=== PATIENT | female | born 1965 | race Caucasian/White ===

== ENCOUNTER 2017-12-25 07:04 | Inpatient (IN) | payer BC ==
[~2017-12-25 07:04] MED LIST: Acetaminophen 1,000 MG in Premix Bag 1 BAG IV ONE; Famotidine 20 MG/2 ML SDV IVPUSH ONE; Ketorolac 30 MG/ML SDV IVPUSH ONE; Lidocaine 2% 5 ML SDV ONE; Midazolam 1 MG/ML 2 ML SDV ONE; Propofol 200 MG/20 ML SDV ONE; Scopolamine 1.5 MG Transdermal Patch TOP ONE; ceFAZolin 2 GM in Premix Bag 1 BAG IV ONE; fentaNYL 100 MCG/2 ML SDV ONE; oxyCODONE ER 10 MG TAB.ER PO ONE
[2017-12-25] MEDS ORDERED: ceFAZolin 1 GM Vial ONE (07:08)
[2017-12-25] MEDS ORDERED: Sodium Chloride 0.9% 20 ML ONE (07:08)
[2017-12-25] MEDS: Lactated Ringers 1,000 ML IV SCH ×3 (07:18→21:24)
--- NOTE | 2017-12-25 07:40 | PCM.PREANE ---
Preanesthetic Assessment - Anesthesia/Transfusion/Family Hx Anesthesia History: Prior Anesthesia Without Reaction Family History of Anesthesia Reaction: No Transfusion History: No Prior Transfusion(s) Intubation History: Unknown - Review of Systems General: No Symptoms Pulmonary: No Symptoms Cardiovascular: No Symptoms Gastrointestinal: No Symptoms Neurological: No Symptoms Other: Reports: None - Physical Assessment O2 Sat by Pulse Oximetry: 97 Respiratory Rate: 16 Vital Signs: Last Vital Signs Temp 36.5 C 12/25/17 07:10 Pulse 73 12/25/17 07:10 Resp 16 12/25/17 07:10 BP 119/73 12/25/17 07:10 Pulse Ox 97 12/25/17 07:10 Height: 1.75 m Weight: 91.626 kg ASA Class: 2 Mental Status: Alert & Oriented x3 Airway Class: Mallampati = 2 Dentition: Reports: Normal Dentition, Fordoche(s) (x1 right lower) Thyro-Mental Finger Breadths: 3 Mouth Opening Finger Breadths: 3 ROM/Head Extension: Full Lungs: Clear to Auscultation, Normal Respiratory Effort Cardiovascular: Regular Rate, Regular Rhythm - Allergies Allergies/Adverse Reactions: Allergies Allergy/AdvReac Type Severity Reaction Status Date / Time No Known Allergies Allergy Verified 12/25/17 07:27 - Blood Blood Available: No - Anesthesia Plan Pre-Op Medication Ordered: None - Acknowledgements Anesthesia Type Planned: Spinal Pt an Appropriate Candidate for the Planned Anesthesia: Yes Alternatives and Risks of Anesthesia Discussed w Pt/Guardian: Yes Pt/Guardian Understands and Agrees with Anesthesia Plan: Yes PreAnesthesia Questionnaire HEENT History: Reports: Other (See Below) Other HEENT History: wears glasses Gastrointestinal History: Reports: None Genitourinary History: Reports: None Musculoskeletal History: Reports: Arthritis, Fracture Other Musculoskeletal History: hx fx foot - Past Surgical History Head Surgeries/Procedures: Reports: None GI Surgical History: Reports: Cholecystectomy Female Surgical History: Reports: Other (See Below) Other Female Surgeries/Procedures: ureteral reimplantation Musculoskeletal Surgical History: Reports: Arthroscopic Knee, Other (See Below) Other Musculoskeletal Surgeries/Procedures:: left knee scope x2, left leg ligament reconstruction Dermatological Surgical History: Reports: Other (See Below) (exc. of hand cyst) - SUBSTANCE USE Smoking Status *Q: Never Smoker Recreational Drug Use History: No - HOME MEDS Home Medications: Home Meds Multivitamin [Multivitamins] 1 tab PO DAILY 06/04/14 [History] Fish Oil/DHA/EPA [Fish Oil 1,200 MG] 1,200 mg PO DAILY 12/20/17 [History] Ibuprofen 3 tab PO BEDTIME PRN 12/20/17 [History] Tranexamic Acid [Lysteda] 650 mg PO DAILY PRN 12/20/17 [History] - CURRENT (IN HOUSE) MEDS Current Meds: Current Medications Lactated Ringer's (Ringers, Lactated) 1,000 mls @ 125 mls/hr IV ASDIRECTED [facility] Last Admin: 12/25/17 07:18 Dose: 125 mls/hr Discontinued Medications Cefazolin Sodium (Ancef) Confirm Administered Dose 2 gm .ROUTE .STK-MED ONE Stop: 12/25/17 07:09 Famotidine (Pepcid) 40 mg IVPUSH ONETIME ONE Stop: 12/25/17 06:35 Last Admin: 12/25/17 07:20 Dose: 40 mg Fentanyl (Sublimaze) Confirm Administered Dose 100 mcg .ROUTE .STK-MED ONE Stop: 12/25/17 07:00 Acetaminophen 1,000 mg/ Premix 100 mls @ 400 mls/hr IV NOW ONE Stop: 12/25/17 06:47 Last Admin: 12/25/17 07:26 Dose: 400 mls/hr Cefazolin Sodium/Dextrose 2 gm (/ Premix) 50 mls @ 100 mls/hr IV ONETIME ONE Stop: 12/25/17 07:06 Sodium Chloride (Normal Saline) Confirm Administered Dose 20 mls @ as directed .ROUTE .STK-MED ONE Stop: 12/25/17 07:09 Ketorolac Tromethamine (Toradol) 30 mg IVPUSH ONETIME ONE Stop: 12/25/17 06:33 Last Admin: 12/25/17 07:25 Dose: 30 mg Lidocaine (Xylocaine-Mpf 2%) Confirm Administered Dose 5 ml .ROUTE .STK-MED ONE Stop: 12/25/17 07:00 Midazolam HCl (Versed 1 Mg/Ml) Confirm Administered Dose 2 mg .ROUTE .STK-MED ONE Stop: 12/25/17 07:00 Oxycodone HCl (Oxycontin) 10 mg PO ONETIME ONE Stop: 12/25/17 06:32 Last Admin: 12/25/17 07:19 Dose: 10 mg Propofol (Diprivan 20 Ml) Confirm Administered Dose 400 mg .ROUTE .STK-MED ONE Stop: 12/25/17 07:00 Scopolamine (Transderm-Scop) 1.5 mg TOP ONETIME ONE Stop: 12/25/17 06:38 Last Admin: 12/25/17 07:20 Dose: 1.5 mg Tranexamic Acid (Cyklokapron) Confirm Administered Dose 4,000 mg .ROUTE .STK- MED ONE Stop: 12/25/17 07:35
[2017-12-25] MEDS ORDERED: Bupivacaine Liposome 1.3% 20 ML SDV INFILT SCH (08:00)
[2017-12-25] MEDS ORDERED: Tranexamic Acid 4,000 MG in Sodium Chloride 0.9% 100 ML IV SCH (08:00)
[2017-12-25] MEDS ORDERED: Ropivacaine 49.25 ML, Ketorolac 30 MG, EPINEPHrine 0.5 MG, cloNIDine 80 MCG in Sodium C... INJECT SCH (08:00)
[2017-12-25] MEDS ORDERED: ePHEDrine 50 MG/ML SDV ONE (08:30)
[2017-12-25] MEDS ORDERED: Propofol 200 MG/20 ML SDV ONE (08:44)
[2017-12-25] MEDS ORDERED: fentaNYL 100 MCG/2 ML SDV IVPUSH PRN (08:46)
--- NOTE | 2017-12-25 10:03 | PCM.OPNOTE ---
- General Post-Op/Procedure Note Date of Surgery/Procedure: 12/25/17 Operative Procedure(s): L TKA. HWR L femur Post-Op Diagnosis: DJD L knee. retained HW left femur Anesthesia Technique: Moderate Sedation, Spinal Primary Surgeon: Kaylyn Martinez Information Technology Project Manager: Kayla Yang in mLs: 50 Condition: Good Free Text/Narrative:: tt=48 min #[id number]
[2017-12-25] MEDS ORDERED: Ondansetron 4 MG/2 ML SDV IV PRN (10:07)
[2017-12-25] MEDS ORDERED: diphenhydrAMINE 25 MG Cap PO PRN (10:07)
[2017-12-25] MEDS ORDERED: Bisacodyl 10 MG Supp RECTAL PRN (10:07)
[2017-12-25] MEDS ORDERED: Aluminum Hydroxide/Magnesium Hydroxide/Simethicone Susp 30 ML Cup PO PRN (10:07)
[2017-12-25] MEDS ORDERED: Morphine PF 30 MG/30 ML PCA Vial IV SCH (10:15)
--- NOTE | 2017-12-25 10:27 | PCM.POSTAN ---
POST ANESTHESIA ASSESSMENT - MENTAL STATUS Mental Status: Alert, Oriented - RESPIRATORY Respiratory Status: Respiratory Rate WNL, Airway Patent, O2 Saturation Stable - CARDIOVASCULAR CV Status: Pulse Rate WNL - GASTROINTESTINAL GI Status: No Symptoms - PAIN Pain Score: 0 - POST OP HYDRATION Hydration Status: Adequate & Stable - OBSERVATIONS Free Text/Narrative:: no anesthesia problems
--- NOTE | 2017-12-25 12:09 | OR ---
SURGEON: Kaylyn Martinez MD DATE OF PROCEDURE: 12/25/2017 PREOPERATIVE DIAGNOSES: 1. Degenerative joint disease, left knee, tricompartmental. 2. Retained hardware, left femur, status post left anterior cruciate ligament reconstruction. POSTOPERATIVE DIAGNOSES: 1. Degenerative joint disease, left knee, tricompartmental. 2. Retained hardware, left femur, status post left anterior cruciate ligament reconstruction. PROCEDURES: 1. Left total knee arthroplasty 2. Hardware removal, left femur, deep implant. WATER MAINTENANCE SUPERVISOR: Kayla Yang PA-C ANESTHESIA: Spinal with sedation. ESTIMATED BLOOD LOSS: 15 mL. TOURNIQUET TIME: 48 minutes. COMPLICATIONS: None. DVT PROPHYLAXIS: PAS boot and SANDIP hose to the nonoperative leg. IMPLANTS USED: Gila Persona femoral component size 9 standard (LPS), tibial component size G, 11 mm all-polyethylene articular surface, and 35 mm all-polyethylene patella. INTRAOPERATIVE FINDINGS: Showed severe tricompartmental degenerative changes which were most severe along the lateral patellofemoral compartment. Osteophyte formation was also noted. The ACL graft appeared intact. Loose body was noted within the posterior aspect of the knee. We did encounter the endo-button along the lateral aspect of the femur, which was removed without difficulty. DESCRIPTION OF PROCEDURE: The patient was properly identified and brought to the operating room. The patient was then transferred from the operating room cart and placed on the operating table in a supine position. Anesthesia was administered by the anesthesia staff. After adequate anesthesia was obtained, a well-padded tourniquet was applied to the surgical lower extremity. Rueda catheter was placed. The lower extremity was then prepped in standard fashion using ChloraPrep solution. It was then sterilely draped. A time-out was performed to ensure correct site and procedure. Preoperative antibiotics were given along with one gram tranexamic acid IV. The surgical site had been marked preoperatively. An Esmarch was used to exsanguinate the left lower extremity and the tourniquet was inflated. An incision was made over the anterior aspect of the knee. The subcutaneous tissues were dissected down to the level of the fascia. A medial parapatellar approach to the knee was made. A portion of the infrapatellar fat pad was then excised. The distal femur was then exposed. The step reamer was used to gain access to the intramedullary canal. This was placed in 6 degrees of valgus. Pins were placed. The distal femoral cutting block was placed and the distal femoral cut was made. Instrumentation was then removed. The femur was then sized. Both Whitesides' line and the epicondylar axis were then marked with electrocautery. The 4-in-1 cutting block was placed. This was placed in a slightly externally rotated position, which corresponded well with the previously drawn lines. The cutting guide was then pinned into position. An Srinivasa wing guide was used to check the depth of resection of our anterior condylar cut and it was felt that no notching would occur. The anterior condylar cut was then made followed by the posterior condylar cut. Both the posterior chamfer and anterior chamfer cuts were then made. The cutting block was then removed along with the excess bony remnants. The retained endobutton was visualized following the cut. A rongeur was used to remove this without difficulty We then turned our attention to the tibia. The anterior cruciate ligament and posterior cruciate ligament were released and a posterior cruciate ligament retractor was placed to allow the tibia to be pulled anteriorly. The tibial extra-medullary guide was then positioned. We chose to take approximately 2 mm off the lowest side. The proximal tibia cutting guide was then placed and screwed into position. The proximal tibial resection was then made with care being taken to protect the patellar tendon. The bony resection was then removed. The remainder of the medial and lateral meniscus were then excised. Care was taken to protect the popliteus tendon. The tibia was then sized to the appropriate size. The distal femur was then elevated. The posterior capsule was stripped off the distal femur both medially and laterally. The posterior capsule along with the medial and lateral gutters were then injected with a standard mixture consisting of clonidine, epinephrine, Toradol, and opivacaine, unless any allergies were found preoperatively. The femoral component was then placed onto the distal femur in a slightly lateral position. This fit the femur well. A box cut was then made without difficulty. This was then removed. The tibial trial along with the polyethylene liner was then placed. The knee came easily into full extension and was stable to varus and valgus stressing both in full extension and flexion. Any additional releases were performed at this time. We then returned our attention to the patella. The patella was everted and towel clamps were used to hold the patella in position. It was resected to a 15 millimeter thickness. It was then sized to the appropriate size. It was prepared in the usual fashion after placing the predetermined size clamps. This was placed in a slightly superior and medial position. The clamp was then removed. The patellar trial button was placed. The knee was taken through a range of motion using the no-touch technique. The patella tracked centrally. A drop cj was then placed to check alignment. All instruments were then removed from the knee. The tibial sizer was then placed on the tibia. The tibia was prepared in the usual fashion using the reamer and broach. This was then removed. All bony surfaces were copiously irrigated with Pulsavac solution. They were then suctioned dry. Cement was prepared on the back table in the usual manner. Antibiotic impregnated cement was used if the patient was diabetic. Once it was prepared, the bone ends were again suctioned dry. The tibia was cemented into place first. This was malleted into position. Excess cement was then cleared. The femur was then placed in a similar manner. We placed the polyethylene trial into place and the knee was brought into full extension. An axial load was placed while keeping the knee in full extension. The patella button was also cemented into position and the clamp was used to hold this in place as the cement was allowed to cure. The wound was copiously irrigated with saline using a pulsavac baker pie. Following this, 1 gram of tranexamic acid was applied topically to the wound during the curing process. After we had adequate curing of the cement, the knee was again taken through a range of motion. The size of the polyethylene was then determined. The polyethylene trial was then removed. The tibial tray was suctioned to make sure there was no remaining soft tissue or cement. Excess cement was cleared from around the edges of the prosthesis as well. The tourniquet was then deflated. We were able to observe for any excess bleeding and none was noted. Electrocautery was used to maintain hemostasis. An additional gram of tranexamic acid was given IV. The retractors were again placed and the predetermined polyethylene was then placed. This was locked into position without difficulty. The knee was again taken through a range of motion with no change from the prior exam. The fascial layer was closed with Number One Vicryl. The subcutaneous tissues were closed with 2-0 Vicryl. The skin was closed with ayo. Xeroform gauze was placed over the wound and a bulky dressing was applied. The patient was then awakened from anesthesia and transferred back to the operating room cart. They were brought to the recovery room in stable condition. All needle and sponge counts were correct. SCOTT BYRNE /[id number] MTDMelia
[2017-12-25] MEDS: Acetaminophen 1,000 MG in Premix Bag 1 BAG IV SCH ×2 (12:16→18:14)
[2017-12-25] MEDS: Ketorolac 30 MG/ML SDV IVPUSH SCH ×2 (14:29→20:03)
[2017-12-25] MEDS: ceFAZolin 2 GM in Premix Bag 1 BAG IV SCH ×2 (15:35→23:02)
--- NOTE | 2017-12-25 16:04 | CR ---
EXAMINATION: Left knee HISTORY: TKA COMPARISON: 02/01/2017 TECHNIQUE: 2 views FINDINGS/IMPRESSION: Left total knee hardware is demonstrated in good position and alignment. Operati ve soft tissue changes are noted. A single screw is again noted within the proximal tibia.
[2017-12-25] MEDS: oxyCODONE ER 10 MG TAB.ER PO SCH (20:02)
[2017-12-25] MEDS: Docusate Sodium 100 MG Cap PO SCH (20:03)
--- NOTE | 2017-12-25 21:33 | PCM48HPAN ---
Post Anesthesia Note - EVALUATION WITHIN 48HRS OF ANESTHETIC Vital Signs in Normal Range: Yes Patient Participated in Evaluation: Yes Respiratory Function Stable: Yes Airway Patent: Yes Cardiovascular Function Stable: Yes Hydration Status Stable: Yes Pain Control Satisfactory: Yes Nausea and Vomiting Control Satisfactory: Yes Mental Status Recovered: Yes Resp Rate: 16
[2017-12-26] MEDS: oxyCODONE 5 MG Tab PO PRN ×2 (00:27→06:47)
[2017-12-26] MEDS: Acetaminophen 1,000 MG in Premix Bag 1 BAG IV SCH (00:28)
[2017-12-26] MEDS: Ketorolac 30 MG/ML SDV IVPUSH SCH (04:34)
[2017-12-26] MEDS: Lactated Ringers 1,000 ML IV SCH (05:58)
[2017-12-26] MEDS ORDERED: Acetaminophen/oxyCODONE 325-5 MG Tab PO PRN (08:00)
[2017-12-26] MEDS: Docusate Sodium 100 MG Cap PO SCH (08:00)
[2017-12-26] MEDS: oxyCODONE ER 10 MG TAB.ER PO SCH (08:00)
--- NOTE | 2017-12-26 08:31 | PCM.SURGPN ---
- General Info Date of Service: 12/26/17 POD#: 1 Functional Status: Reports: Pain Controlled - Review of Systems General: Reports: No Symptoms HEENT: Reports: No Symptoms Pulmonary: Reports: No Symptoms Cardiovascular: Reports: No Symptoms Gastrointestinal: Reports: No Symptoms Genitourinary: Reports: No Symptoms Musculoskeletal: Reports: No Symptoms Skin: Reports: No Symptoms Neurological: Reports: No Symptoms Psychiatric: Reports: No Symptoms Systems Review Comment:: Patient did well overnight. Pain has been well controlled. Numbness in foot better, but still persists. No other complaints. - Patient Data Vitals - Most Recent: Last Vital Signs Temp 97.8 F 12/26/17 04:00 Pulse 76 12/26/17 04:00 Resp 16 12/26/17 04:00 BP 104/54 L 12/26/17 04:00 Pulse Ox 97 12/26/17 04:00 Weight - Most Recent: 91.626 kg I&O - Last 24 Hours: Intake & Output 12/25/17 12/26/17 12/26/17 22:59 06:59 14:59 Intake Total 2150 2610 Output Total 1330 2450 Balance 820 160 Lab Results Last 24 Hrs: Laboratory Results - last 24 hr 12/26/17 Range/Units 05:00 Hgb 11.0 L (12.0-16.0) g/dL Hct 33.9 L (36.0-46.0) % Med Orders - Current: Current Medications Al Hydroxide/Mg Hydroxide (Mag-Al Plus) 30 ml PO Q4H PRN PRN Reason: indigestion Aspirin (Aspirin) 325 mg PO BID [facility] Last Admin: 12/26/17 07:59 Dose: 325 mg Bisacodyl (Dulcolax) 10 mg RECTAL DAILY PRN PRN Reason: Constipation Celecoxib (Celebrex) 200 mg PO BID [facility] Last Admin: 12/26/17 08:00 Dose: 200 mg Diphenhydramine HCl (Benadryl) 25 - 50 mg PO Q6H PRN PRN Reason: Itching Docusate Sodium (Colace) 100 mg PO BID [facility] Last Admin: 12/26/17 08:00 Dose: 100 mg Lactated Ringer's (Ringers, Lactated) 1,000 mls @ 125 mls/hr IV ASDIRECTED [facility] Last Admin: 12/26/17 05:58 Dose: 125 mls/hr Morphine Sulfate (Morphine Sulfate) 1 - 3 mg IV Q3H PRN PRN Reason: Pain Ondansetron HCl (Zofran) 4 mg IV Q6HR PRN PRN Reason: NAUSEA/VOMITING Oxycodone HCl (Oxycontin) 10 mg PO Q12HR [facility] Last Admin: 12/26/17 08:00 Dose: 10 mg Oxycodone/Acetaminophen (Percocet 325-5 Mg) 1 - 2 tab PO Q4H PRN PRN Reason: Pain Discontinued Medications Bupivacaine Liposome (Exparel) 20 ml INFILT ONETIME [facility] Cefazolin Sodium (Ancef) Confirm Administered Dose 2 gm .ROUTE .STK-MED ONE Stop: 12/25/17 07:09 Ephedrine Sulfate (Ephedrine Sulfate) Confirm Administered Dose 50 mg .ROUTE .STK-MED ONE Stop: 12/25/17 08:31 Famotidine (Pepcid) 40 mg IVPUSH ONETIME ONE Stop: 12/25/17 06:35 Last Admin: 12/25/17 07:20 Dose: 40 mg Fentanyl (Sublimaze) Confirm Administered Dose 100 mcg .ROUTE .STK-MED ONE Stop: 12/25/17 07:00 Fentanyl (Sublimaze) 50 mcg IVPUSH Q5M PRN PRN Reason: Pain (severe 7-10) Stop: 12/26/17 08:46 Acetaminophen 1,000 mg/ Premix 100 mls @ 400 mls/hr IV NOW ONE Stop: 12/25/17 06:47 Last Admin: 12/25/17 07:26 Dose: 400 mls/hr Cefazolin Sodium/Dextrose 2 gm (/ Premix) 50 mls @ 100 mls/hr IV ONETIME ONE Stop: 12/25/17 07:06 Last Admin: 12/25/17 12:01 Dose: Not Given Sodium Chloride (Normal Saline) Confirm Administered Dose 20 mls @ as directed .ROUTE .STK-MED ONE Stop: 12/25/17 07:09 Ropivacaine 49.25 ml/Ketorolac Tromethamine 30 mg/Epinephrine HCl 0.5 mg/ Clonidine HCl 80 mcg/ Sodium Chloride 70 mls @ 50 mls/min INJECT ASDIRECTED [facility] Tranexamic Acid 4,000 mg/ (Sodium Chloride) 140 mls @ 600 mls/hr IV ASDIRECTED [facility] Acetaminophen 1,000 mg/ Premix 100 mls @ 400 mls/hr IV Q6H [facility] Stop: 12/26/17 01:14 Last Admin: 12/26/17 00:28 Dose: 400 mls/hr Cefazolin Sodium/Dextrose 2 gm (/ Premix) 50 mls @ 0 mls/hr IV Q8H [facility] Stop: 12/26/17 00:01 Last Admin: 12/25/17 23:02 Dose: 100 mls/hr Ketorolac Tromethamine (Toradol) 30 mg IVPUSH ONETIME ONE Stop: 12/25/17 06:33 Last Admin: 12/25/17 07:25 Dose: 30 mg Ketorolac Tromethamine (Toradol) 30 mg IVPUSH Q6H [facility] Stop: 12/26/17 05:00 Last Admin: 12/26/17 04:34 Dose: 30 mg Lidocaine (Xylocaine-Mpf 2%) Confirm Administered Dose 5 ml .ROUTE .STK-MED ONE Stop: 12/25/17 07:00 Midazolam HCl (Versed 1 Mg/Ml) Confirm Administered Dose 2 mg .ROUTE .STK-MED ONE Stop: 12/25/17 07:00 Morphine Sulfate (Morphine Software Project Lead 30 Mg In 30 Ml) 30 mg IV ASDIRECTED [facility]; Protocol Stop: 12/26/17 08:00 Last Admin: 12/25/17 10:26 Dose: 30 mg Oxycodone HCl (Oxycontin) 10 mg PO ONETIME ONE Stop: 12/25/17 06:32 Last Admin: 12/25/17 07:19 Dose: 10 mg Oxycodone HCl (Oxycodone) 5 - 10 mg PO Q4H PRN PRN Reason: Pain Stop: 12/26/17 08:00 Last Admin: 12/26/17 06:47 Dose: 10 mg Propofol (Diprivan 20 Ml) Confirm Administered Dose 400 mg .ROUTE .STK-MED ONE Stop: 12/25/17 07:00 Propofol (Diprivan 20 Ml) Confirm Administered Dose 400 mg .ROUTE .STK-MED ONE Stop: 12/25/17 08:45 Scopolamine (Transderm-Scop) 1.5 mg TOP ONETIME ONE Stop: 12/25/17 06:38 Last Admin: 12/25/17 07:20 Dose: 1.5 mg Tranexamic Acid (Cyklokapron) Confirm Administered Dose 4,000 mg .ROUTE .STK- MED ONE Stop: 12/25/17 07:35 - Exam Wound/Incisions: Dressing Dry and Intact General: Alert, Oriented Neck: Supple Lungs: Normal Respiratory Effort Cardiovascular: Regular Rate Psy/Mental Status: Alert, Normal Affect, Normal Mood Physical Findings Comment:: Exam of the left knee shows dressing dry/intact. No calf tenderness. 0/5 AT, EHL. Peroneal eversion weak. Decreased sensation across dorsum of foot. DP 2+. - Problem List & Annotations (1) Peroneal palsy SNOMED Code(s): 747114173 Code(s): G57.30 - LESION OF LATERAL POPLITEAL NERVE, UNSPECIFIED LOWER LIMB Status: Acute Current Visit: Yes Qualifiers: Laterality: left Qualified Code(s): G57.32 - Lesion of lateral popliteal nerve, left lower limb (2) Total knee replacement status SNOMED Code(s): 1061743097059, 676158728, 7559676920009 Code(s): Z96.659 - PRESENCE OF UNSPECIFIED ARTIFICIAL KNEE JOINT Status: Acute Current Visit: Yes Qualifiers: Laterality: left Qualified Code(s): Z96.652 - Presence of left artificial knee joint - Problem List Review Problem List Initiated/Reviewed/Updated: Yes - My Orders Last 24 Hours: Active Orders 24 hr Category Date Time Status Patient Status [ADT] Routine ADT 12/25/17 14:00 Active Activity as Tolerated [RC] .Routine Care 12/25/17 10:07 Active Bradycardia-Neuroaxis [employer] [RC] ROUTINE Care 12/25/17 08:46 Active Dressing Change [Wound Care] [RC] ASDIRECTED Care 12/25/17 10:07 Active Hypertension-Neuroaxis [employer] [RC] ROUTINE Care 12/25/17 08:46 Active Hypotension-Neuroaxis [employer] [RC] ROUTINE Care 12/25/17 08:46 Active Insert Urinary Catheter [OM.PC] Routine Care 12/25/17 07:47 Ordered Intake and Output [RC] Q12H Care 12/25/17 10:06 Active Neurovascular Check [RC] Q4HR Care 12/25/17 10:06 Active Notify Provider Vital Signs [RC] ASDIRECTED Care 12/25/17 10:07 Active RT Incentive Spirometry [RC] ASDIRECTED Care 12/25/17 10:06 Active Urinary Catheter Assessment [RC] ASDIRECTED Care 12/25/17 07:47 Active Vital Signs [RC] Q4H Care 12/25/17 10:06 Active PT Evaluation and Treatment [CONS] Routine Cons 12/25/17 10:06 Active Regular Diet [DIET] Diet 12/25/17 Dinner Active HEMOGLOBIN/HEMATOCRIT,HH [HEME] DAILY Lab 12/27/17 05:11 Ordered HEMOGLOBIN/HEMATOCRIT,HH [HEME] DAILY Lab 12/28/17 05:11 Ordered Acetaminophen/oxyCODONE [Percocet 325-5 MG] Med 12/26/17 08:00 Active 1 - 2 tab PO Q4H PRN Alum Hydrox/Mag Hydrox/Simeth [Mag-Al Plus] Med 12/25/17 10:07 Active 30 ml PO Q4H PRN Aspirin Med 12/26/17 09:00 Active 325 mg PO BID Bisacodyl [Dulcolax] Med 12/25/17 10:07 Active 10 mg RECTAL DAILY PRN Celecoxib [CeleBREX] Med 12/26/17 09:00 Active 200 mg PO BID Docusate Sodium [Colace] Med 12/25/17 21:00 Active 100 mg PO BID Morphine Sulfate Med 12/26/17 08:00 Active 1 - 3 mg IV Q3H PRN Ondansetron [Zofran] Med 12/25/17 10:07 Active 4 mg IV Q6HR PRN diphenhydrAMINE [Benadryl] Med 12/25/17 10:07 Active 25 - 50 mg PO Q6H PRN oxyCODONE ER [OxyCONTIN] Med 12/25/17 21:00 Active 10 mg PO Q12HR Antiembolic Hose [OM.PC] Routine Oth 12/25/17 07:47 Ordered Ice Therapy [OM.PC] Routine Oth 12/25/17 10:06 Ordered Sequential Compression Device [OM.PC] Routine Oth 12/25/17 07:47 Ordered Medication Orders Al Hydroxide/Mg Hydroxide (Mag-Al Plus) 30 ml PO Q4H PRN PRN Reason: indigestion Aspirin (Aspirin) 325 mg PO BID [facility] Last Admin: 12/26/17 07:59 Dose: 325 mg Bisacodyl (Dulcolax) 10 mg RECTAL DAILY PRN PRN Reason: Constipation Celecoxib (Celebrex) 200 mg PO BID [facility] Last Admin: 12/26/17 08:00 Dose: 200 mg Diphenhydramine HCl (Benadryl) 25 - 50 mg PO Q6H PRN PRN Reason: Itching Docusate Sodium (Colace) 100 mg PO BID [facility] Last Admin: 12/26/17 08:00 Dose: 100 mg Admin: 12/25/17 20:03 Dose: 100 mg Lactated Ringer's (Ringers, Lactated) 1,000 mls @ 125 mls/hr IV ASDIRECTED [facility] Last Admin: 12/26/17 05:58 Dose: 125 mls/hr Infusion: 12/26/17 05:24 Dose: 125 mls/hr Admin: 12/25/17 21:24 Dose: 125 mls/hr Infusion: 12/25/17 20:19 Dose: 125 mls/hr Admin: 12/25/17 12:19 Dose: 125 mls/hr Infusion: 12/25/17 12:19 Dose: 125 mls/hr Admin: 12/25/17 07:18 Dose: 125 mls/hr Morphine Sulfate (Morphine Sulfate) 1 - 3 mg IV Q3H PRN PRN Reason: Pain Ondansetron HCl (Zofran) 4 mg IV Q6HR PRN PRN Reason: NAUSEA/VOMITING Oxycodone HCl (Oxycontin) 10 mg PO Q12HR [facility] Last Admin: 12/26/17 08:00 Dose: 10 mg Admin: 12/25/17 20:02 Dose: 10 mg Oxycodone/Acetaminophen (Percocet 325-5 Mg) 1 - 2 tab PO Q4H PRN PRN Reason: Pain - Plan Plan (Free Text/Narrative):: 1. start PT--determine need for AFO 2. discussed peroneal nerve palsy with patient and family. Discussed need for PT and possible bracing. Also discussed usual course of 3-6 months for recovery. No EMG at this time, however consider in future if symptoms persist. 3. ASA/SCD for DVT prophylaxis 4. pain management 5. possible d/c home today
[2017-12-26] MEDS ORDERED: Aspirin 325 MG Tab PO SCH (09:00)
[2017-12-26] MEDS ORDERED: Celecoxib 100 MG Cap PO SCH (09:00)
[2017-12-26] MEDS ORDERED: Sodium Chloride 0.9% 2.5 ML Syringe FLUSH PRN (09:29)
[2017-12-26] MEDS ORDERED: Sodium Chloride 0.9% 10 ML Syringe FLUSH PRN (09:29)
[2017-12-26 12:24] VITALS: BP 105/89
--- NOTE | 2017-12-26 13:40 | PCM.SN ---
- Free Text/Narrative Note: d/ch summary #[id number]
--- NOTE | 2017-12-27 07:41 | DISCH ---
DATE OF DISCHARGE: 12/26/2017 PRIMARY CARE PHYSICIAN: Faith PCP ADMITTING DIAGNOSIS: Degenerative joint disease, left knee, tricompartmental. OTHER MEDICAL DIAGNOSIS: Metromenorrhagia. DISCHARGE DIAGNOSES: 1. Degenerative joint disease, left knee, tricompartmental. 2. Metromenorrhagia. 3. Acute post hemorrhagic anemia. 4. Left peroneal nerve palsy. BRIEF HISTORY: Shayla is a 52-year-old female who has had progressive complaints of left knee pain. She has tried and failed conservative treatment. At that time, surgical treatment was recommended. On December 25, 2017, the patient underwent a left total knee arthroplasty using standard instrumentation along with hardware removal of the left femur. This was done by Dr. Kaylyn Martinez. It was done under spinal anesthesia with sedation. Estimated blood loss was 50 mL. Tourniquet time was 48 minutes. There were no known complications. Upon the completion of the procedure, the patient was transferred to the PACU and subsequently to Med/Surg for postoperative care. HOSPITAL COURSE: Postoperatively, the patient did well. Her pain was well controlled with a combination of oral and IV pain medications. She was found to have a left peroneal nerve palsy, but she is able to ambulate well using a wheeled walker. Physical therapy followed her through her hospital stay. Her vital signs have been stable. She has been afebrile. Her hemoglobin on the morning of December 26 was 11.0. Aspirin 325 mg was started on postoperative day #1 as DVT prophylaxis. She received 2 doses of Ancef postoperatively for a total of 24 hours of antibiotic coverage. At this time, the patient is doing well. Her pain is well controlled with oral pain medications only. She is ambulating well with a wheeled walker. She is tolerating oral intake. She feels comfortable with discharge to home. DISCHARGE MEDICATIONS: 1. OxyContin 10 mg. 2. Percocet 5/325. 3. Celebrex 200 mg. 4. Colace 100 mg. 5. Aspirin 325 mg. DISCHARGE INSTRUCTIONS: 1. Follow up in clinic in 10 to 14 days from the date of procedure. This appointment has been made for the patient. 2. Outpatient physical therapy 2 or 3 times per week for 4 to 6 weeks. 3. No driving while taking narcotic pain medications. 4. She may change her dressing over the weekend at home. An additional Aquacel dressing has been provided to her. 5. Polar Care to the left knee as needed. 6. SANDIP hose, on in the morning, off in the evening. For complete medication reconciliation and discharge instructions, please refer back to the patient's EHR. Should she have questions or concerns prior to followup, she has been advised to contact the clinic. IMELDA BYRNE /[id number]
== END 2017-12-26 13:10 | disposition home or self-care (01) | DRG 302 ==
LOC: MW.SDS 07:04 → MW.MS 13:25 → MW.SDS 14:00
PROVIDERS: ADMIT Orthopaedic Surgery; ATTEND Orthopaedic Surgery
PROC: 0SRD069 Replacement of Left Knee Joint with Oxidized Zirconium on Polyethylene Synthetic Substitute, Cemented, Open Approach (ICD-10-PCS; principal; 2017-12-25)
PROC: 0SPD0JZ Removal of Synthetic Substitute from Left Knee Joint, Open Approach (ICD-10-PCS; 2017-12-25)
DX: M17.12 Unilateral primary osteoarthritis, left knee (principal); M25.762 Osteophyte, left knee; M23.42 Loose body in knee, left knee; M79.5 Residual foreign body in soft tissue; N92.1 Excessive and frequent menstruation with irregular cycle; D62 Acute posthemorrhagic anemia; G57.32 Lesion of lateral popliteal nerve, left lower limb
CPT/HCPCS: 36415; 73560-26-LT; 73560-LT; 85014; 85018; 86850; 86900; 86901; 97110-GP; 97161-GP; 97530-GP; A9270-GY; C1713; C1776; J0131; J0171; J0690; J0735; J1885; J2250; J2274; J2704; J2795; J3010; J3490; J7050; J7120

== ENCOUNTER 2018-12-27 20:00 | Emergency (ER) | payer BC ==
[2018-12-27 20:24] VITALS: BP 145/86; PULSE 86
--- NOTE | 2018-12-27 20:36 | EDM.PDOC ---
ED HPI GENERAL MEDICAL PROBLEM - General Chief Complaint: ENT Problem Stated Complaint: PT HAS SORE THROAT Time Seen by Provider: 12/27/18 20:07 Source of Information: Reports: Patient History Limitations: Reports: No Limitations - History of Present Illness INITIAL COMMENTS - FREE TEXT/NARRATIVE: HISTORY AND PHYSICAL: History of present illness: Patient is a 53-year-old female who presents to the emergency room today with complaints of sore throat, mild nausea and generalized body aches. She states she has been using [id number] products without much relief. Patient denies any headache, change in vision, syncope or near syncope. Denies any chest pain, back pain, shortness of breath or cough. Denies any abdominal pain, nausea, vomiting, diarrhea, constipation or dysuria. Has not noted any blood in urine or stool. Patient has been eating and drinking appropriately. Review of systems: As per history of present illness and below otherwise all systems reviewed and negative. Past medical history: As per history of present illness and as reviewed below otherwise noncontributory. Surgical history: As per history of present illness and as reviewed below otherwise noncontributory. Social history: See social history for further information Family history: As per history of present illness and as reviewed below otherwise noncontributory. Physical exam: General: Well-developed and well-nourished 53-year-old female. Alert and oriented. Nontoxic appearing and in no acute distress. HEENT: Atraumatic, normocephalic, pupils equal and reactive bilaterally, negative for conjunctival pallor or scleral icterus, mucous membranes moist, TMs normal bilaterally, posterior oropharynx is erythematous with exudate bilaterally, no pillar shifting or fullness, neck supple, nontender, trachea midline. No drooling or trismus noted. No meningeal signs. No hot potato voice noted. Lungs: Clear to auscultation, breath sounds equal bilaterally, chest nontender. Heart: S1S2, regular rate and rhythm without overt murmur Abdomen: Soft, nondistended, nontender. Skin: Intact, warm, dry. No lesions or rashes noted. Extremities: Atraumatic, moves all extremities per self without difficulty or deficits, negative for cords or calf pain. Neurovascular unremarkable. Neuro: Awake, alert, oriented. Cranial nerves II through XII unremarkable. Cerebellum unremarkable. Motor and sensory unremarkable throughout. Exam nonfocal. Notes: Patient has obvious exudates. We discussed diagnostics and therapeutics, she declines. Supportive care measures were reviewed and discussed. Voices understanding and is agreeable to plan of care. Denies any further questions or concerns at this time. Diagnostics: Declines Therapeutics: Declined Prescription: Pen VK Phenergan with codeine Impression: Pharyngitis Plan: 1. Take your medication as directed. Increase your oral fluids to prevent dehydration. 2. Warm Salt water gargles (rinse and spit) 3-4 x daily. Please get a new tooth brush after completion of your medication 3. Tylenol and or ibuprofen as needed for pain management. Phenergan with codeine for moderate to severe pain. This medication may cause drowsiness a do not take it will driving her needing to be functioning outside of the house. 4. Follow-up with your primary care provider in the next 1-2 days. Return to the ED as needed and as discussed. Definitive disposition and diagnosis as appropriate pending reevaluation and review of above. - Related Data Allergies Allergy/AdvReac Type Severity Reaction Status Date / Time No Known Allergies Allergy Verified 12/25/17 07:27 Home Meds: Home Meds Multivitamin [Multivitamins] 1 tab PO DAILY 06/04/14 [History] Codeine/Promethazine [Phenergan with Codeine] 1 dose PO Q4HR PRN #1 bottle 12/27 [Rx] Ondansetron [Zofran ODT] 4 mg PO Q6H PRN #6 tab.dis 12/27/18 [Rx] Penicillin V Potassium [Veetids] 250 mg PO BID 10 Days #20 tab 12/27/18 [Rx] Past Medical History HEENT History: Reports: Other (See Below) Other HEENT History: wears glasses Gastrointestinal History: Reports: None Genitourinary History: Reports: None Musculoskeletal History: Reports: Arthritis, Fracture Other Musculoskeletal History: hx fx foot - Past Surgical History Head Surgeries/Procedures: Reports: None GI Surgical History: Reports: Cholecystectomy Female Surgical History: Reports: Other (See Below) Other Female Surgeries/Procedures: ureteral reimplantation Musculoskeletal Surgical History: Reports: Arthroscopic Knee, Knee Replacement, Other (See Below) Other Musculoskeletal Surgeries/Procedures:: left knee scope x2, left leg ligament reconstruction Dermatological Surgical History: Reports: Other (See Below) Social & Family History - Family History Family Medical History: Noncontributory - Tobacco Use Smoking Status *Q: Never Smoker - Recreational Drug Use Recreational Drug Use: No ED ROS ENT - Review of Systems Review Of Systems: ROS reveals no pertinent complaints other than HPI. ED EXAM, ENT - Physical Exam Exam: See Below (See dictation) Course - Vital Signs Last Recorded V/S: Last Vital Signs Temp 98 F 12/27/18 20:22 Pulse 86 12/27/18 20:22 Resp 18 12/27/18 20:22 BP 145/86 H 12/27/18 20:22 Pulse Ox 93 L 12/27/18 20:22 Departure - Departure Time of Disposition: 20:35 Disposition: Home, Self-Care 01 Clinical Impression: Pharyngitis Qualifiers: Pharyngitis/tonsillitis etiology: unspecified etiology Qualified Code(s): J02.9 - Acute pharyngitis, unspecified - Discharge Information Prescriptions: Codeine/Promethazine [Phenergan with Codeine] 1 dose PO Q4HR PRN #1 bottle PRN Reason: Pain Ondansetron [Zofran ODT] 4 mg PO Q6H PRN #6 tab.dis PRN Reason: Nausea Penicillin V Potassium [Veetids] 250 mg PO BID 10 Days #20 tab Instructions: Strep Throat, [id number] Referrals: PCP,None [Primary Care Provider] - Forms: ED Department Discharge Additional Instructions: The following information is given to patients seen in the emergency department who are being discharged to home. This information is to outline your options for follow-up care. We provide all patients seen in our emergency department with a follow-up referral. The need for follow-up, as well as the timing and circumstances, are variable depending upon the specifics of your emergency department visit. If you don't have a primary care physician on staff, we will provide you with a referral. We always advise you to contact your personal physician following an emergency department visit to inform them of the circumstance of the visit and for follow-up with them and/or the need for any referrals to a consulting specialist. The emergency department will also refer you to a specialist when appropriate. This referral assures that you have the opportunity for follow-up care with a specialist. All of these measure are taken in an effort to provide you with optimal care, which includes your follow-up. Under all circumstances we always encourage you to contact your private physician who remains a resource for coordinating your care. When calling for follow-up care, please make the office aware that this follow-up is from your recent emergency room visit. If for any reason you are refused follow-up, please contact the [facility] Emergency Department at and asked to speak to the emergency department charge nurse. [facility] [address] [place] [id number] [facility] [address] [place] [id number] 1. Take your medication as directed. Increase your oral fluids to prevent dehydration. 2. Warm Salt water gargles (rinse and spit) 3-4 x daily. Please get a new tooth brush after completion of your medication 3. Tylenol and or ibuprofen as needed for pain management. Phenergan with codeine for moderate to severe pain. This medication may cause drowsiness a do not take it will driving her needing to be functioning outside of the house. 4. Follow-up with your primary care provider in the next 1-2 days. Return to the ED as needed and as discussed.
== END 2018-12-27 20:45 | disposition home or self-care (01) ==
LOC: MW.ED 20:00
DX: J02.9 Acute pharyngitis, unspecified (principal); Z90.49 Acquired absence of other specified parts of digestive tract
CPT/HCPCS: 99283

== ENCOUNTER 2020-01-20 07:24 | Day surgery (SDC) | payer BC ==
[~2020-01-20 07:24] MED LIST changes: -Acetaminophen 1,000 MG in Premix Bag 1 BAG IV ONE; -Famotidine 20 MG/2 ML SDV IVPUSH ONE; -Ketorolac 30 MG/ML SDV IVPUSH ONE; +Lactated Ringers 1,000 ML IV SCH; -Lidocaine 2% 5 ML SDV ONE; -Midazolam 1 MG/ML 2 ML SDV ONE; -Propofol 200 MG/20 ML SDV ONE; -Scopolamine 1.5 MG Transdermal Patch TOP ONE; -ceFAZolin 2 GM in Premix Bag 1 BAG IV ONE; -fentaNYL 100 MCG/2 ML SDV ONE; -oxyCODONE ER 10 MG TAB.ER PO ONE
[2020-01-20] MEDS ORDERED: Lidocaine 2% 5 ML SDV ONE (08:49)
[2020-01-20] MEDS ORDERED: Ondansetron 4 MG/2 ML SDV ONE (08:49)
[2020-01-20] MEDS ORDERED: HYDROmorphone 2 MG/ML Syringe ONE (08:50)
[2020-01-20] MEDS ORDERED: Propofol 200 MG/20 ML SDV ONE (08:50)
[2020-01-20] MEDS ORDERED: fentaNYL 100 MCG/2 ML SDV ONE (08:50)
[2020-01-20] MEDS ORDERED: Midazolam 1 MG/ML 2 ML SDV ONE (08:50)
--- NOTE | 2020-01-20 09:13 | PCM.PREANE ---
Preanesthetic Assessment - Anesthesia/Transfusion/Family Hx Anesthesia History: Prior Anesthesia Without Reaction Family History of Anesthesia Reaction: No Transfusion History: No Prior Transfusion(s) Intubation History: Unknown - Review of Systems General: No Symptoms Pulmonary: No Symptoms Cardiovascular: No Symptoms Gastrointestinal: No Symptoms Neurological: No Symptoms Other: Reports: None - Physical Assessment Height: 5 ft 9 in Weight: 92.986 kg ASA Class: 2 Mental Status: Alert & Oriented x3 Airway Class: Mallampati = 2 Dentition: Reports: Normal Dentition (veneer x1 upper front) Thyro-Mental Finger Breadths: 3 Mouth Opening Finger Breadths: 3 ROM/Head Extension: Full Lungs: Clear to Auscultation, Normal Respiratory Effort Cardiovascular: Regular Rate, Regular Rhythm - Lab Values: Laboratory Last Values SARS-CoV-2 RNA (CORAL) NEGATIVE (NEGATIVE) 01/20/20 07:38 - Allergies Allergies/Adverse Reactions: Allergies Allergy/AdvReac Type Severity Reaction Status Date / Time No Known Allergies Allergy Verified 01/17/20 08:47 - Blood Blood Available: No - Anesthesia Plan Pre-Op Medication Ordered: None - Acknowledgements Anesthesia Type Planned: General Anesthesia Pt an Appropriate Candidate for the Planned Anesthesia: Yes Alternatives and Risks of Anesthesia Discussed w Pt/Guardian: Yes Pt/Guardian Understands and Agrees with Anesthesia Plan: Yes PreAnesthesia Questionnaire HEENT History: Reports: Other (See Below) Other HEENT History: wears glasses Cardiovascular History: Reports: Other (See Below) (h/o superficial phlebitis) Respiratory History: Reports: None Gastrointestinal History: Reports: None Genitourinary History: Reports: Other (See Below) (h/o pyelonephritis) Musculoskeletal History: Reports: Arthritis, Fracture Other Musculoskeletal History: hx fx foot Neurological History: Reports: None Psychiatric History: Reports: Depression Endocrine/Metabolic History: Reports: Obesity/BMI 30+ (BMI 30.3) Hematologic History: Reports: None Immunologic History: Reports: None Oncologic (Cancer) History: Reports: None Dermatologic History: Reports: Eczema - Infectious Disease History Infectious Disease History: Reports: None - Past Surgical History Head Surgeries/Procedures: Reports: None Cardiovascular Surgical History: Reports: None GI Surgical History: Reports: Cholecystectomy Female Surgical History: Reports: Other (See Below) Other Female Surgeries/Procedures: essure, states 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 Musculoskeletal Surgical History: Reports: Arthroscopic Knee, Knee Replacement, Other (See Below) Other Musculoskeletal Surgeries/Procedures:: left knee scope x2, left leg ligament reconstruction Dermatological Surgical History: Reports: Other (See Below) - SUBSTANCE USE Smoking Status *Q: Never Smoker - HOME MEDS Home Medications: Home Meds Multivitamin [Multivitamins] 1 tab PO DAILY 06/04/14 [History] Acetylcysteine [Nac] 900 mg PO DAILY 01/17/20 [History] Ashwaganda 1 tab PO DAILY 01/17/20 [History] Calcium Carbonate [Calcium] 600 mg PO DAILY 01/17/20 [History] Calcium/Cranberry/Milk Thistle [Liver-Kidney Cleanser] 1 tab PO DAILY 01/17/20 [History] Cholecalciferol (Vitamin D3) [Vitamin D] 5,000 unit PO DAILY 01/17/20 [History] Glutathione 1 ml PO DAILY 01/17/20 [History] L.acidoph,Paracasei, B.lactis [Probiotic] 1 tab PO DAILY 01/17/20 [History] Magnesium Oxide/Magnesium [Magnesium] 300 mg PO DAILY 01/17/20 [History] Prebiotic 1 tab PO DAILY 01/17/20 [History] Ubidecarenone/Wagoner-3/Vit E [Co Q-10-Vit E-Fish Oil Sfgl] 1 each PO DAILY 01/17/20 [History] - CURRENT (IN HOUSE) MEDS Current Meds: Current Medications Lactated Ringer's (Ringers, Lactated) 1,000 mls @ 125 mls/hr IV ASDIRECTED HEATHER Discontinued Medications Fentanyl (Sublimaze) Confirm Administered Dose 100 mcg .ROUTE .STK-MED ONE Stop: 01/20/20 08:51 Hydromorphone HCl (Dilaudid) Confirm Administered Dose 2 mg .ROUTE .STK-MED ONE Stop: 01/20/20 08:51 Lidocaine (Xylocaine-Mpf 2%) Confirm Administered Dose 5 ml .ROUTE .STK-MED ONE Stop: 01/20/20 08:50 Midazolam HCl (Versed 1 Mg/Ml) Confirm Administered Dose 2 mg .ROUTE .STK-MED ONE Stop: 01/20/20 08:51 Ondansetron HCl (Zofran) Confirm Administered Dose 4 mg .ROUTE .STK-MED ONE Stop: 01/20/20 08:50 Propofol (Diprivan 20 Ml) Confirm Administered Dose 200 mg .ROUTE .[facility] ONE Stop: 01/20/20 08:51
[2020-01-20] MEDS ORDERED: Ketorolac 30 MG/ML SDV ONE (09:54)
--- NOTE | 2020-01-20 09:55 | PCM.OPNOTE ---
- General Post-Op/Procedure Note Date of Surgery/Procedure: 01/20/20 Operative Procedure(s): Hysteroscopic polypectomy, franctional dilation and curettage Findings: Anteverted uterus sounds to 7 cm, normal endocervical canal, large endometrial polyp on posterior lower uterine segment, bilateral fallopian tubal ostea visualized, atrophic appearing endometrium Pre Op Diagnosis: Endometrial polyp, postmenopausal bleeding Post-Op Diagnosis: Same Anesthesia Technique: General LMA Primary Surgeon: Najma Corea Co Founder And Director: Yesenai Rhoades ([id number]) Pathology: Endometrial polyp, endocervical curettings, endometrial curettings sent to pathology Fluid Replacement, Intraop: 700 EBL in mLs: 10 Drain/Tube Comments:: Hysteroscopic deficit 105 cc Complications: None known Condition: Good
--- NOTE | 2020-01-20 10:16 | PCM.POSTAN ---
POST ANESTHESIA ASSESSMENT - MENTAL STATUS Mental Status: Alert, Oriented - VITAL SIGNS Vital Signs: Last Vital Signs Temp 36.4 C 01/20/20 09:49 Pulse 61 01/20/20 10:10 Resp 16 01/20/20 10:10 BP 107/63 01/20/20 10:10 Pulse Ox 93 L 01/20/20 10:10 - RESPIRATORY Respiratory Status: Respiratory Rate WNL, Airway Patent, O2 Saturation Stable - CARDIOVASCULAR CV Status: Pulse Rate WNL, Blood Pressure Stable - GASTROINTESTINAL GI Status: No Symptoms - PAIN Pain Score: 0 - POST OP HYDRATION Hydration Status: Adequate & Stable - OBSERVATIONS Free Text/Narrative:: No anesthesia problems
--- NOTE | 2020-01-20 10:57 | PCM48HPAN ---
Post Anesthesia Note - EVALUATION WITHIN 48HRS OF ANESTHETIC Vital Signs in Normal Range: Yes Patient Participated in Evaluation: Yes Respiratory Function Stable: Yes Airway Patent: Yes Cardiovascular Function Stable: Yes Hydration Status Stable: Yes Pain Control Satisfactory: Yes Nausea and Vomiting Control Satisfactory: Yes Mental Status Recovered: Yes Vital Signs: Last Vital Signs Temp 36.4 C 01/20/20 09:49 Pulse 61 01/20/20 10:10 Resp 16 01/20/20 10:10 BP 107/63 01/20/20 10:10 Pulse Ox 93 L 01/20/20 10:10 - COMMENTS/OBSERVATIONS Free Text/Narrative:: No anesthesia problems
[2020-01-20 12:23] VITALS: BP 109/66; PULSE 62
--- NOTE | 2020-01-20 12:43 | OR ---
SURGEON: Najma Corea M.D. DATE OF PROCEDURE: 01/20/2020 PREOPERATIVE DIAGNOSIS: Endometrial polyp. POSTOPERATIVE DIAGNOSIS: Endometrial polyp. PROCEDURE: Hysteroscopic polypectomy, fractional D and C. PRIMARY SURGEON: Najma Corea MD DEVELOPMENTAL WRITING INSTRUCTOR: RAN Maldonado ANESTHESIA: LMA. ESTIMATED BLOOD LOSS: 10 mL. FLUIDS: 700 mL of crystalloid. HYSTEROSCOPIC DEFICIT: 105 mL of normal saline. COMPLICATIONS: None known. PATHOLOGY SPECIMENS: Uterine polyp, endometrial curettings, endocervical curettings. DISPOSITION: The patient is stable to Recovery. BRIEF HISTORY: This is a 54-year-old female. She presents with an episode of postmenopausal bleeding. Ultrasound in the clinic showed a thickened endometrium with a large suspected endometrial polyp. I recommended proceeding with hysteroscopic polypectomy and fractional D and C for removal of the polyp and obtaining pathology tissue with risks discussed including bleeding, infection, uterine perforation with injury to surrounding organs, risk of fluid overload, risk of thromboembolic event, risk of anesthesia, and risk of infection. Understanding all these risks, she does desire to proceed. DESCRIPTION OF PROCEDURE: With the patient in dorsal lithotomy position, under adequate general LMA analgesia, the perineum and vagina were prepped with Betadine and draped in the usual fashion for pelvic surgery. The bladder was drained with a red Hodges catheter. Bimanual examination revealed an anteverted 7-week size uterus. Speculum was placed in the vagina. The anterior lip of the cervix was grasped with an Allis clamp. The cervix was dilated to a 6 mm Hegar dilator. The 6 mm hysteroscope was placed into the uterine cavity. Bilateral tubal ostia were identified and there was a large posterior uterine polyp encompassing most of the uterine cavity. The MyoSure was then utilized to excise the polyp. Once this was completed, the base was inspected and it appeared hemostatic. There were no other polyps, no other lesions identified. Therefore, the hysteroscope was removed. Sharp curettage of the endometrium was performed at the 12, 3, 6, and 9 o'clock position and sent as a specimen. Prior to proceeding with the endometrial curettings, endocervical curettings had been obtained and collected with a Cytobrush. All of the instruments removed from the vagina. Final sponge, needle, and instrument counts were reported as correct. There were no known complications. The patient was transferred to Recovery in good condition. CHALINO BYRNE /[id number]
== END 2020-01-20 11:16 | disposition home or self-care (01) ==
LOC: MW.SDS 07:24
PROVIDERS: ATTEND Obstetrics & Gynecology
DX: N84.0 Polyp of corpus uteri (principal); F32.9 Major depressive disorder, single episode, unspecified; E66.9 Obesity, unspecified; Z68.30 Body mass index [BMI] 30.0-30.9, adult; Z79.899 Other long term (current) drug therapy; Z01.812 Encounter for preprocedural laboratory examination; Z90.49 Acquired absence of other specified parts of digestive tract; Z20.828 Contact with and (suspected) exposure to other viral communicable diseases
CPT/HCPCS: 36415; 58558; 85027; 87635; 88305; J1170; J2001; J2250; J2405; J2704; J3010; J7120; U0002

== ENCOUNTER 2023-08-02 20:26 | Emergency (ER) | payer BC ==
[2023-08-02] MEDS: Diltiazem 25 MG/5 ML SDV IVPUSH ONE (20:57)
[2023-08-02] MEDS: Sodium Chloride 0.9% 1,000 ML IV ONE (20:57)
[2023-08-02 21:02] VITALS: PULSE 80
[2023-08-02 21:16] LABS: BASOPHILS ABSOLUTE AUTO 0.02 K/uL (0.00-0.20); BASOPHILS PERCENT AUTO 0.2 % (0.0-1.0); EOSINOPHILS ABSOLUTE AUTO 0.23 K/uL (0.00-0.45); EOSINOPHILS PERCENT AUTO 2.6 % (0.0-6.0); HEMATOCRIT 41.9 % (37.0-47.0); HEMOGLOBIN 14.1 g/dL (12.0-16.0); IMMATURE GRAN ABSOLUTE AUTO 0.02 K/uL (0.00-0.05); IMMATURE GRAN PERCENT AUTO 0.2 % (0.0-0.4); LYMPHOCYTES ABSOLUTE AUTO 2.92 K/uL (1.00-4.80); LYMPHOCYTES PERCENT AUTO 33.2 % (24.0-44.0); MEAN CORPUSCULAR HEMOGLOBIN 29.7 pg (28.0-32.0); MEAN CORPUSCULAR HGB CONC 33.7 g/dL (32.0-36.0); MEAN CORPUSCULAR VOLUME 88.4 fL (83.0-99.0); MEAN PLATELET VOLUME 9.3 fL (9.4-12.3); MONOCYTES ABSOLUTE AUTO 0.63 K/uL (0.00-0.80); MONOCYTES PERCENT AUTO 7.2 % (0.0-8.0); NEUTROPHILS ABSOLUTE AUTO 4.97 K/uL (1.80-7.70); NEUTROPHILS PERCENT AUTO 56.6 % (41.0-71.0); PLATELET COUNT,PLT 270 K/uL (150-400); RED BLOOD CELL COUNT 4.74 M/uL (4.10-5.30); WHITE BLOOD CELL COUNT,WBC 8.79 K/uL (3.9-11.3)
[2023-08-02] MEDS: Diltiazem IR 60 MG Tab PO ONE (21:18)
[2023-08-02 21:37] LABS: INR 0.97 (0.86-1.11); PTT,PARTIAL THROMBOPLSTIN TIME 30.2 SEC (23.9-30.7)
[2023-08-02 21:49] LABS: A/G RATIO 0.9 (0.9-1.6); ALANINE AMINOTRANSFERASE,ALT 23 IU/L (14-63); ALBUMIN 3.5 g/dL (3.4-5.0); ALKALINE PHOSPHATASE 113 U/L (46-116); ASPARTATE AMNIOTRANSFERASE,AST 20 IU/L (15-37); BILIRUBIN TOTAL 0.3 mg/dL (0.2-1.0); BLOOD UREA NITROGEN,BUN 28 mg/dL (7.0-18.0); CALCIUM 9.4 mg/dL (8.5-10.1); CARBON DIOXIDE,CO2 24.5 mmol/L (21.0-32.0); CHLORIDE,CL 106 mmol/L (98-107); CREATININE 0.8 mg/dL (0.6-1.0); GLUCOSE RANDOM 133 mg/dL (74-106); MAGNESIUM 1.9 mg/dL (1.8-2.4); PROTEIN TOTAL,TP 7.3 g/dL (6.4-8.2); SODIUM,NA 143 mmol/L (136-145); TSH ULTRASENSITIVE 3.61 uIU/mL (0.36-3.74)
[2023-08-02 21:52] LABS: ESTIMATED GFR 86 mL/min (>60)
[2023-08-02 22:15] VITALS: BP 122/79
== END 2023-08-02 22:13 | disposition home or self-care (01) ==
LOC: MW.ED 20:26
DX: I48.91 Unspecified atrial fibrillation (principal); Z79.899 Other long term (current) drug therapy; Z75.8 Other problems related to medical facilities and other health care
CPT/HCPCS: 36415; 80053; 83735; 84443; 84484; 85025; 85610; 85730; 93005; 96361; 96374; 99285; A9270; J3490; J7030; 93010; 99284